=== PATIENT | male | born 1950 | race Two or more races ===

== ENCOUNTER 2025-06-18 06:18 | Day surgery (SDC) | payer MEDICARE, OTHER, SELFPAY | END 2025-06-18 16:34 | disposition home or self-care (01) | LOC: GI 06:18 | PROVIDERS: ATTENDING PHYSICIAN Specialist | DX: Z12.11 Encounter for screening for malignant neoplasm of colon (principal); R19.5 Other fecal abnormalities; K57.30 Diverticulosis of large intestine without perforation or abscess without bleeding; K63.89 Other specified diseases of intestine; K63.5 Polyp of colon; D12.0 Benign neoplasm of cecum | CPT/HCPCS: 45385; 45380; 88305 ==